=== PATIENT | female | born 1930 | race African-American/Black ===

== ENCOUNTER 2019-04-12 14:55 | Emergency (ER) | payer OTHER, MEDICAID ==
[~2019-04-12] VITALS: Ht 162.6 cm; Wt 54.0 kg
[2019-04-12 15:20] VITALS: BP 197/114
--- NOTE | 2019-04-12 15:31 | NUR ---
PT WHEELCHAIRED TO BED 9
--- NOTE | 2019-04-12 15:33 | NUR ---
88 Y/O FEMALE C/O ABD PAIN X 2 WEEKS. 8/10 CONSTANT SHARP PAIN MORE PROMINENT IN RUQ. BOWEL SOUNDS PRESENT X 4 QUAD. SOFT, ROUND, AND TENDER TO PALP. STATES CHANGE IN APPETITE. WHEN PAIN OCCURS PT STATES SHE FEELS SHORT OF BREATH. RR EVEN AND UNLABORED. PT LAYING IN BED CALM AND PLEASANT. VSS. MEDHX: ARTHRITIS ALLERGIES: NKA
[2019-04-12] MEDS: NACL 0.9% 1,000 ML IV ONE (16:51)
[2019-04-12] MEDS: MORPHINE SULFATE 4 MG/ML SYR IVP ONE (16:52)
--- NOTE | 2019-04-12 17:00 | NUR ---
PT PLACED ON BEDPAN FOR URINE COLLECTION
[2019-04-12 17:09] LABS: BASOPHILS # (AUTO) 0.1 K/uL (0.00-0.22); BASOPHILS % (AUTO) 0.9 % (0.0-2.0); EOSINOPHILS % (AUTO) 0.4 % (0.0-4.0); HEMATOCRIT 35.7 % (36-48); HEMOGLOBIN 11.5 g/dL (12.0-16.0); LYMPHOCYTES # (AUTO) 2.6 K/uL (2.5-16.5); LYMPHOCYTES % (AUTO) 37.3 % (20.5-51.1); MEAN CORPUSCULAR HEMOGLOBIN 30 pg (27-31); MEAN CORPUSCULAR HGB CONC 32 g/dL (33-37); MEAN CORPUSCULAR VOLUME 93.2 fL (80-94); MONOCYTES # (AUTO) 0.5 K/uL (0.8-1.0); MONOCYTES % (AUTO) 6.6 % (1.7-9.3); NEUTROPHILS # (AUTO) 3.8 K/uL (1.8-7.7); NEUTROPHILS % (AUTO) 54.8 % (42.2-75.2); PLATELET COUNT (AUTO) 201 K/uL (140-450); RED BLOOD CELL COUNT(AUTO) 3.83 MIL/uL (4.20-5.40); RED CELL DISTRIBUTION WIDTH 13.6 % (11.6-13.7); WHITE BLOOD COUNT (AUTO) 6.9 K/uL (4.8-10.8)
--- NOTE | 2019-04-12 17:18 | NUR ---
URINE COLLECTED FROM PT
--- NOTE | 2019-04-12 17:25 | NUR ---
XRAY AT BEDSIDE.
--- NOTE | 2019-04-12 17:29 | NUR ---
PT STATES SLIGHT DECREASE IN PAIN AFTER MEDICATION. 07/13. WILL REASSESS
[2019-04-12 17:40] LABS: ALBUMIN 3.8 g/dL (3.4-5.0); ANION GAP 18.9 (8-16); ASPARTATE AMINOTRANSFERASE 40 U/L (15-37); CARBON DIOXIDE 21.1 mmol/L (21-32); CHLORIDE 107 mmol/L (98-107); GLUCOSE 133 mg/dL (74-106); LIPASE 165 U/L (73-393); SODIUM SERUM 143 mmol/L (136-145); TOTAL BILIRUBIN 0.8 mg/dL (0.0-1.0); UREA NITROGEN, BLOOD 32 mg/dL (7-18)
[2019-04-12 18:44] VITALS: BP 138/65
--- NOTE | 2019-04-12 18:44 | NUR ---
Patient discharged with v/s stable. Written and verbal after care instructions given and explained. Patient/SON alert, oriented and verbalized understanding of instructions. Wheel Chair Assisted with SON to car. All questions addressed prior to discharge. ID band removed. Patient advised to follow up with PMD. Rx of LASIX given. Patient/SON educated on indication of medication including possible reaction and side effects. Opportunity to ask questions provided and answered.
[2019-04-12 18:55] LABS: APPEARANCE,URINE HAZY (CLEAR); BILIRUBIN,URINE NEGATIVE (NEGATIVE); BLOOD, URINE 1+ (NEGATIVE); COLOR,URINE YELLOW (YELLOW); LEUKOCYTE ESTERASE ,URINE 3+ (NEGATIVE); NITRITE, URINE NEGATIVE (NEGATIVE); UGLUCOSE NEGATIVE (NEGATIVE)
[2019-04-12 19:11] LABS: HYALINE CASTS, URINE 0-10 /LPF (None Seen)
== END 2019-04-12 18:44 | disposition home or self-care (01) ==
LOC: MED 14:55
DX: J90 Pleural effusion, not elsewhere classified (principal); I31.3 Pericardial effusion (noninflammatory); R10.9 Unspecified abdominal pain; I10 Essential (primary) hypertension
CPT/HCPCS: 36415; 71045; 74176; 80053; 81001; 83690; 83880; 85025; 87086; 87186; 96374; 99284; J2270; J7030; Q0092

== ENCOUNTER 2019-04-16 17:48 | Inpatient (IN) | payer OTHER, MEDICAID ==
[~2019-04-16] VITALS: Ht 160 cm; Wt 52.2 kg
--- NOTE | 2019-04-16 17:57 | NUR ---
PT IN WHEELCHAIR TO ER BED 05
[2019-04-16 18:05] VITALS: BP 166/104
--- NOTE | 2019-04-16 18:10 | NUR ---
PATIENT BIB DAUGHTER WITH C/O PERSISTANT SOB AND RIGHT RIB PAIN >1 WK, CONTINUES WITH INCREASED WORK OF BREATHING, ACCESSORY MUSCLE USE NOTED FATIGUE, GENERALIZED WEAKNESS, HX--HTN, HYPERLIPIDEMIA . PATIENT AAOX4 RHOCHI LUNGS BL; HR EVEN AND REGULAR; PT DENIES ANY FEVER, CP, DENIES PAIN, VSS; PATIENT POSITIONED FOR COMFORT; HOB ELEVATED; BEDRAILS UP X2; BED DOWN. ER MD MADE AWARE OF PT STATUS.
--- NOTE | 2019-04-16 18:15 | NUR ---
Patient being evaluated by physician at bedside.
--- NOTE | 2019-04-16 18:42 | NUR ---
IV INSERTED TO RIGHT FOREARM 20GA WITH GOOD BLOOD RETURN, PT TOLERATED WELL ON THE PROCEDURE .
--- NOTE | 2019-04-16 19:05 | NUR ---
REPORT GIVEN TO HOME PERFORMANCE CONSULTANT NURSE FOR CONTINUE OF CARE.
--- NOTE | 2019-04-16 19:05 | NUR ---
REPORT GIVEN FROM YAMILE CARRILLO. TRANSFER OF CARE GIVEN.
[2019-04-16 19:09] LABS: BASOPHILS % (AUTO) 0.7 % (0.0-2.0); EOSINOPHILS % (AUTO) 0.2 % (0.0-4.0); HEMATOCRIT 35.6 % (36-48); HEMOGLOBIN 11.5 g/dL (12.0-16.0); LYMPHOCYTES # (AUTO) 1.3 K/uL (2.5-16.5); LYMPHOCYTES % (AUTO) 20.5 % (20.5-51.1); MEAN CORPUSCULAR HEMOGLOBIN 30 pg (27-31); MEAN CORPUSCULAR HGB CONC 32 g/dL (33-37); MEAN CORPUSCULAR VOLUME 93.3 fL (80-94); MONOCYTES # (AUTO) 0.4 K/uL (0.8-1.0); MONOCYTES % (AUTO) 6.7 % (1.7-9.3); NEUTROPHILS # (AUTO) 4.7 K/uL (1.8-7.7); NEUTROPHILS % (AUTO) 71.9 % (42.2-75.2); PLATELET COUNT (AUTO) 138 K/uL (140-450); RED BLOOD CELL COUNT(AUTO) 3.82 MIL/uL (4.20-5.40); RED CELL DISTRIBUTION WIDTH 13.7 % (11.6-13.7); WHITE BLOOD COUNT (AUTO) 6.6 K/uL (4.8-10.8)
--- NOTE | 2019-04-16 19:20 | NUR ---
URINE COLLECTED VIA BED BLACK. PERINEAL HYGIENE PROVIDED WITH DAUGHTER'S ASSISTANCE.
[2019-04-16 19:30] LABS: ANION GAP 15.9 (8-16); CARBON DIOXIDE 23.2 mmol/L (21-32); CHLORIDE 111 mmol/L (98-107); CREATININE 3.6 mg/dL (0.6-1.3); GLUCOSE 101 mg/dL (74-106); POTASSIUM 4.1 mmol/L (3.5-5.1); SODIUM SERUM 146 mmol/L (136-145); UREA NITROGEN, BLOOD 54 mg/dL (7-18)
[2019-04-16 19:35] LABS: ALBUMIN 3.5 g/dL (3.4-5.0); ASPARTATE AMINOTRANSFERASE 76 U/L (15-37); TOTAL BILIRUBIN 1.1 mg/dL (0.0-1.0)
[2019-04-16 19:36] LABS: APPEARANCE,URINE CLEAR (CLEAR); BILIRUBIN,URINE NEGATIVE (NEGATIVE); BLOOD, URINE TRACE-I (NEGATIVE); COLOR,URINE YELLOW (YELLOW); LEUKOCYTE ESTERASE ,URINE TRACE (NEGATIVE); NITRITE, URINE NEGATIVE (NEGATIVE); PH,URINE 5.5 (5.0-9.0); UGLUCOSE NEGATIVE (NEGATIVE)
[2019-04-16 19:40] LABS: PROTHROMBIN TIME 12.4 secs (10.8-13.4)
--- NOTE | 2019-04-16 19:41 | NUR ---
PT TAKEN TO CT
--- NOTE | 2019-04-16 19:58 | NUR ---
PT RETURN FROM CT
[2019-04-16] MEDS ORDERED: ASPI-1718 PO (20:22)
[2019-04-16] MEDS ORDERED: CALC0.5S6 PO (20:24)
[2019-04-16] MEDS ORDERED: SIMV40TA1 PO (20:24)
[2019-04-16] MEDS ORDERED: FEBU40TA PO (20:26)
[2019-04-16] MEDS ORDERED: MULT-153 PO (20:26)
--- NOTE | 2019-04-16 20:47 | NUR ---
PT RESTING UPRIGHT IN BED EYES OPEN. RESPIRATIONS ARE EVEN AND UNLABORED. NC IN PALCE AND RUNNING CONTINOUSLY @ 2L/MIN. O2SAT @ 98%. DAUGHTER AT BEDSIDE. BED IN LOWEST POSITION AND LOCKED IN PLACE.
--- NOTE | 2019-04-16 20:59 | NUR ---
Dr. Mcelroy examining patient.
[2019-04-16] MEDS ORDERED: MORPHINE SULFATE 4 MG/ML SYR IVP ONE (21:05)
[2019-04-16] MEDS ORDERED: FUROSEMIDE 40 MG/4 ML VIAL IVP ONE (21:05)
[2019-04-16] MEDS ORDERED: DOCUSATE SODIUM 100 MG GELCAP PO PRN (21:55)
[2019-04-16] MEDS ORDERED: ACETAMINOPHEN 325 MG TAB PO PRN (21:55)
[2019-04-16] MEDS ORDERED: ONDANSETRON 4 MG/2 ML VIAL IM/IVP PRN (21:55)
[2019-04-16] MEDS ORDERED: HYDROcodone/APAP 7.5/325 MG 1 TAB PO PRN (21:55)
--- NOTE | 2019-04-16 21:59 | NUR ---
IV IN R FA INFULTRATED. ATTEMTED TO START NEW IV PLACEMENT WITH UNSUCCESSFUL RESULTS. MADE AWARE. Addendum: 04/16/19 at 2204 by [email or web address] * LASIX AND MORPHINE WERE NOT GIVEN. DR RAMIREZ MADE AWARE. NO NEW ORDERS AT THIS TIME. MULTPILE ATTEMOPS MADE FOR NEW IV PLACEMENT BY RN X 2 AND CHARGE NURSE. DAUGHTER IS REFUSING FURTHER IV ATTEMPTS.
--- NOTE | 2019-04-16 22:01 | NUR ---
Attempted to obtain new IV access. Unable to advance cath. Patients family expressed concern and does not any more attempts. Admitting Dr. Green informed.
--- NOTE | 2019-04-16 22:23 | NUR ---
Patient taken to floor in [facility] on monitor by RN's.
[2019-04-16] MEDS ORDERED: HEPARIN PER PHARMACY MC PRN (22:25)
[2019-04-16] MEDS ORDERED: hePARIN / DEXT 5% PREMIX 250 ML IV SCH (22:25)
--- NOTE | 2019-04-16 22:25 | NUR ---
RECEIVED PATIENT VIA GURNEY FROM THE ER NURSE MERY. PATIENT IS AWAKE AND ALERT, ABLE TO MAKE NEEDS KNOWN. ACCOMPANIED BY DAUGHTER ALICE AND SON ELSY. NC 2LPM. RESPIRATIONS EVEN, UNLABORED. SKIN WARM, DRY TO TOUCH. NO IV ACCESS AT THIS TIME. AWAITING PICC LINE INSERTION. RIGHT KNEE ABRASION NOTED FROM PREVIOUS FALL AT HOME. BLE WEAKNESS. ORIENTED TO ROOM, CALL LIGHT. MSRA SCREEN COMPLETED. VITALS TAKEN 173/96 HR 85. MD AWARE. PATIENT DENIES ANY PAIN. PLAN OF CARE DISCUSSED. ALL SAFETY MEASURES IN PLACE. BED IN LOWEST POSITION. CALL LIGHT WITHIN REACH. WILL CONTINUE TO MONITOR.
--- NOTE | 2019-04-16 22:26 | NUR ---
Called PICC RN [phone], ken Texted Joss CARRILLO [facility] [phone], wait for Joss to text back
--- NOTE | 2019-04-16 22:30 | NUR ---
Patient will be admitted to care of . Admited to [facility]. Will go to room 107B. Belongings list completed. Report to KRYSTINA CARRILLO.
--- NOTE | 2019-04-16 22:45 | NUR ---
PATIENT LEFT THE UNIT FOR CT ACCOMPANIED BY NURSE AND IN STABLE CONDITION.
[2019-04-16 22:52] LABS: CHOL/HDL RATIO 2.4 (1-4.5); FREE T4 (FREE THYROXINE) 1.34 ng/dL (0.76-1.46); MAGNESIUM 2.1 mg/dL (1.8-2.4); PHOSPHORUS 4.5 mg/dL (2.5-4.9); THYROID STIMULATING HORMONE 1.12 uIU/mL (0.34-3.74)
--- NOTE | 2019-04-16 23:00 | NUR ---
PATIENT RETURNED FROM CT IN STABLE CONDITION. NO S/SX ACUTE DISTRESS. NO C/O PAIN. PATIENT ASKED FOR SANDWICH. SANDWICH WAS PROVIDED BY STAFF. AWAITING ARRIVAL OF PICC LINE NURSE FOR INSERTION. CALL LIGHT WITHIN REACH. WILL CONTINUE TO MONITOR.
[2019-04-16] MEDS ORDERED: ALBUTEROL SULFATE/IPRATROPIU 3 ML SOL IH PRN (23:05)
[2019-04-16] MEDS ORDERED: NITROGLYCERIN 0.4 MG TAB SL ONE (23:05)
[2019-04-17] MEDS ORDERED: FUROSEMIDE 40 MG TAB PO SCH
[2019-04-17 00:06] VITALS: BP 173/96
[2019-04-17] MEDS ORDERED: cefTRIAXone 1,000 MG VIAL ONE (01:24)
--- NOTE | 2019-04-17 01:50 | NUR ---
PICC LINE NURSE CONFIRMED PLACEMENT AND STATED READY TO USE.
--- NOTE | 2019-04-17 02:21 | NUR ---
IV ABT INFUSING WELL. PATIENT AWAKE AND IN STABLE CONDITION. CALL LIGHT WITHIN REACH. WILL CONTINUE TO MONITOR.
[2019-04-17] MEDS: hePARIN / DEXT 5% PREMIX 250 ML IV SCH ×2 (02:34→11:09)
--- NOTE | 2019-04-17 02:35 | NUR ---
STARTED HEPARIN INFUSION. INFUSTION RATE 6.2 ML/HR. NO S/SX ACUTE DISTRESS. NO C/O PAIN. CALL LIGHT WITHIN REACH. WILL CONTINUE TO MONITOR.
[2019-04-17 04:00] VITALS: BP 163/96
--- NOTE | 2019-04-17 04:05 | NUR ---
PATIENT'S BP 163/96. MD IS AWARE. AWAITING ORDERS. NO S/SX ACUTE DISTRESS. WILL CONTINUE TO MONITOR.
--- NOTE | 2019-04-17 04:10 | NUR ---
DAUGHTER PAT CALLED FOR AN UPDATE ON PATIENT. RELAYED TO DAUGHTER THAT PATIENT IS SLEEPING AND IN STABLE CONDITION. NO S/SX ACUTE DISTRESS. CALL LIGHT WITHIN REACH. WILL CONTINUE TO MONITOR.
--- NOTE | 2019-04-17 04:25 | NUR ---
PER ELECTRO TECH PATIENT'S HR IS RANGING FROM 150-170. NOTIFIED MD WITH RECOMMENDATION TO TAKE MORNING BP MEDS EARLY. NO S/SX DISTRESS NOTED. NO C/O PAIN. WILL CONTINUE TO MONITOR.
[2019-04-17] MEDS ORDERED: LISINOPRIL 5 MG TAB ONE (04:40)
[2019-04-17] MEDS ORDERED: METOPROLOL 25 MG TAB ONE (04:52)
--- NOTE | 2019-04-17 04:54 | NUR ---
MEDICATED WITH METOPROLOL PER MD ORDER. WILL CONTINUE TO MONITOR.
--- NOTE | 2019-04-17 05:25 | NUR ---
PATIENT'S HR STILL ELEVATED RANGING FROM 150-170s. MD ORDERED EKG. CALL LIGHT WITHIN REACH. WILL CONTINUE TO MONITOR.
[2019-04-17 06:24] LABS: BASOPHILS # (AUTO) 0.1 K/uL (0.00-0.22); BASOPHILS % (AUTO) 1.5 % (0.0-2.0); EOSINOPHILS # (AUTO) 0.1 K/uL (0-0.4); EOSINOPHILS % (AUTO) 1.2 % (0.0-4.0); HEMATOCRIT 33.3 % (36-48); HEMOGLOBIN 10.8 g/dL (12.0-16.0); LYMPHOCYTES # (AUTO) 1.4 K/uL (2.5-16.5); LYMPHOCYTES % (AUTO) 22.1 % (20.5-51.1); MEAN CORPUSCULAR HEMOGLOBIN 30 pg (27-31); MEAN CORPUSCULAR HGB CONC 32 g/dL (33-37); MEAN CORPUSCULAR VOLUME 93.4 fL (80-94); MONOCYTES # (AUTO) 0.5 K/uL (0.8-1.0); MONOCYTES % (AUTO) 7.9 % (1.7-9.3); NEUTROPHILS # (AUTO) 4.3 K/uL (1.8-7.7); NEUTROPHILS % (AUTO) 67.3 % (42.2-75.2); PLATELET COUNT (AUTO) 136 K/uL (140-450); RED BLOOD CELL COUNT(AUTO) 3.57 MIL/uL (4.20-5.40); RED CELL DISTRIBUTION WIDTH 13.9 % (11.6-13.7); WHITE BLOOD COUNT (AUTO) 6.4 K/uL (4.8-10.8)
[2019-04-17 06:54] LABS: CARBON DIOXIDE 22.3 mmol/L (21-32); CHLORIDE 110 mmol/L (98-107); CREATININE 3.7 mg/dL (0.6-1.3); GLUCOSE 118 mg/dL (74-106); POTASSIUM 4.3 mmol/L (3.5-5.1); SODIUM SERUM 145 mmol/L (136-145); UREA NITROGEN, BLOOD 60 mg/dL (7-18)
--- NOTE | 2019-04-17 07:22 | NUR ---
ENDORSED PATIENT IN STABLE CONDITION TO AM SHIFT NURSE.
[2019-04-17 08:00] VITALS: BP 108/83
--- NOTE | 2019-04-17 08:00 | NUR ---
RECEIVED PATIENT FROM FOOD OR BAGGAGE HANDLING RAMPMAN RN FOR CONTINUITY OF CARE. PATIENT IS AAOX3, ABLE TO MAKE NEEDS KNOWN. NC @ 2LPM. RESPIRATIONS EVEN, UNLABORED. SKIN WARM, DRY TO TOUCH. PILL LINE IN THE RIGHT UPPER ARM, 2 LUMENS FLUSHING WELL. RIGHT KNEE ABRASION NOTED FROM PREVIOUS FALL AT HOME. BLE WEAKNESS. ORIENTED TO ROOM, CALL LIGHT. MD AWARE. PATIENT DENIES ANY PAIN. POC DISCUSSED WITH PT AND PT VERBALIZED UNDERSTANDING. ALL SAFETY MEASURES IN PLACE. BED IN LOWEST POSITION. CALL LIGHT WITHIN REACH. WILL MONITOR PT FREQUENTLY.
--- NOTE | 2019-04-17 08:16 | NUR ---
PATIENT HAS BEEN SCREENED AND CATEGORIZED MODERATE NUTRITION RISK. PATIENT WILL BE SEEN WITHIN 3-5 DAYS OF ADMISSION. 04/19/19 04/21/[address]
[2019-04-17] MEDS ORDERED: LISINOPRIL 5 MG TAB PO SCH (09:00)
[2019-04-17] MEDS ORDERED: METOPROLOL SUCCINATE 50 MG TABER PO SCH (09:00)
[2019-04-17] MEDS ORDERED: PANTOPRAZOLE 40 MG TABEC PO SCH (09:00)
[2019-04-17] MEDS ORDERED: METOPROLOL 25 MG TAB PO SCH (09:00)
[2019-04-17] MEDS: ASPIRIN 81 MG TAB.CHEW PO SCH (09:24)
--- NOTE | 2019-04-17 09:24 | NUR ---
PT MORNING MEDICATIONS GIVEN. PT TOLERATED WELL. ALL OTHER NEEDS MET. WILL CONTINUE TO ROUND FREQUENTLY ON PT. BED IN LOW POSITION, CALL LIGHT WITHIN REACH. PT HAS ORDER FOR RESTRAINTS BUT PT DOES NOT NEED THEM AT THIS TIME.
[2019-04-17] MEDS: FUROSEMIDE 40 MG/4 ML VIAL IVP SCH ×2 (09:25→21:52)
--- NOTE | 2019-04-17 09:51 | NUR ---
WOUND CARE EVALUATION NOTE: WOUND ASSESSMENT CARD TO THIS 88 Y/O FEMALE PT. ALERT,K FORGETFUL , FOLLOW DIRECTIONS WELL. 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 ABLE TO BEND RIGHT KNEE WITH NO LIMITATION, NO C/O PAIN. RECOMMENDATIONS: -CLEANSE RIGHT KNEE SKIN TEAR WITH NS, PAT DRY, APPLY SILVASORB GEL AND COVER WITH COMPOSITE DRESSING QD AND PRN IF SOILING -ENCOURAGE TO TURN AND REPOSITION PATIENT Q 2H -ASSESS AND MONITOR SKIN CONDITION DURING POSITION CHANGE -OFFLOAD BILATERAL HEELS BY PLACING PILLOWS UNDER CALVES AT ALL TIMES, UNLESS OTHERWISE CONTRAINDICATED -KEEP SKIN CLEAN AND DRY AT ALL TIMES.
--- NOTE | 2019-04-17 11:32 | NUR ---
PT RESTING IN BED. ALL NEEDS MET. WILL CONTINUE TO ROUND ON PT.
[2019-04-17 12:00] VITALS: BP 127/85
--- NOTE | 2019-04-17 13:54 | NUR ---
PT SLEEPING. ALL NEEDS MET. WILL CONTINUE TO ROUND FREQUENTLY ON PT. BED IN LOW POSITION, CALL LIGHT WITHIN REACH.
[2019-04-17] MEDS: PIPERACILLIN/TAZOBACTAM 2.25 GM in DEXTROSE 5% 50 ML IV SCH ×2 (13:59→21:49)
[2019-04-17] MEDS: GAUZE TP SCH (13:59)
--- NOTE | 2019-04-17 15:21 | NUR ---
Military Administrative Technician Note: Patient is an 88-year-old female admitted for SOB and elevated trops. Patient has PMHX of HTN, and osteoarthritis. Patient was admitted from home. SW attempted to conduct assessment with bedside but patient could not recall what facility she came from. Patient directed SW to son Aashish Aggarwal [phone]. Patient left . SW will follow up.
--- NOTE | 2019-04-17 15:21 | NUR ---
PT RESTING IN BED WATCHING TV. ALL NEEDS MET. WILL CONTINUE TO ROUND ON PT.
--- NOTE | 2019-04-17 15:31 | NUR ---
DISCHARGE PLANNING: AN 88 Y/O FEMALE PATIENT FROM A INTERMEDIATE FACILITY IN [place], WHO CAME IN DUE TO SHOERTNESS OF BREATH AND CHEST PAIN X 2DAYS. PAST MEDICAL HISTORY INCLUDE HTN, OSTEOARTHRITIS, CKD. INITIAL DIAGNOSIS OF SOB AND ELEVATED TROPONIN. CURRENT LABS INCLUDE WBC 6.4, H/H 10.8/33.3, NA/K 145/4.3, BUN/CREA 60/3.7, TROP 0.722, BNP 5000 AND PTT 73.3. ON HEPARIN DRIP. ON ZOSYN AND LASIX IV. 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 MILD GLOBAL VOLUME LOSS AND CHRONIC MICROVASCULAR ISCHEMIC CHANGE. CHEST CT SHOWED SMALL BILATERAL PLEURAL EFFUSIONS WITH ASSOCIATED AREAS OF ATELECTASIS, CARDIOMEGALY WITH CORONARY ARTERY CALCIFICATIONS. ABD U/S SHOWED PROBABLE ELEVATED RIGHT HEART PRESSURE, PROBABLE PORTAL HYPERTENSION, SMALL AMOUNT OF ASCITES. KIDNEY U/S SHOWED MEDICAL RENAL DISEASE. NEPHRO, PULMO AND CARDIO CONSULTS IN PLACE. DC PLAN TO HOME ONCE STABLE. Addendum: 04/18/19 at 1400 by Grisel Lemus DC PLANNING: TENTATIVE DC PLAN TO SNF FOR IV ANTIBIOTICS AND PT. MET WITH THE PATIENT AND THE PATIENT'S DAUGHTER PAT AT THE BEDSIDE TO DISCUSS DC PLANNING. PATIENT'S DAUGHTER PAT STATED THEY DO NOT HAVE ANY PREFERENCE HOWEVER SHE WANTED TO TOUR THE PLACE FIRST. IMM AND CHOICE OF VENDOR FORM PROVIDED. PATIENT'S DAUGHTER PAT SIGNED BOTH PAPERS AND COPIES ARE PLACED IN THE CHART. Addendum: 04/19/19 at 1418 by Nati MATHUR Late entry for 04/18/18: I was informed by Loader Machine Grisel, patient's family is going to tour [facility] on 04/19/18. Addendum: 04/19/19 at 1422 by Nati MATHUR I was informed by Charge Nurse Rosie, patient's family would like patient to be transferred to [facility] . I faxed inquiry to [facility]. Mike Matos from [facility] patient may go to room 420A today, patient's nurse Radha made aware. Addendum: 04/19/19 at 1512 by Randi Casanova CM DC PLANNING PT IS ACCEPTED AT [facility] GOING TO ROOM 420A ARRANGED TRANSPORT WITH [employer] CAR REPAIRER PULLMAN TIME 7 PM NOTIFIED RADHA CARRILLO. PER NATI RUVALCABA(HVAC PROJECT MANAGER) YARI TO [facility].
[2019-04-17 16:00] VITALS: BP 131/82
--- NOTE | 2019-04-17 17:32 | NUR ---
PT RESTING WITH DAUGHTER AT BEDSIDE. ALL NEEDS MET. WILL CONTINUE TO ROUND FREQUENTLY ON PT. BED IN LOW POSITION, CALL LIGHT WITHIN REACH.
[2019-04-17] MEDS: ATORVASTATIN 20 MG TAB PO SCH (18:15)
--- NOTE | 2019-04-17 19:30 | NUR ---
RECEIVED BEDSIDE REPORT FROM AM SHIFT RN FOR PT'S CONTINUITY OF CARE. PT IS AAOX2, WITH FAMILY MEMBER AT BEDSIDE, PT IS ON SENIOR SPEECH PATHOLOGIST, ON 2L O2 VIA NC, HAS RIGHT UPPER ARM PICC LINE, SALINE LOCK, DENIES ANY PAIN AT THIS TIME. EXPLAINED TO PT THE EAR SPECIALIST ROUTINE, PT AND FAM MEMBER VERBALIZED UNDERSTANDING. SAFETY MEASURES IN PLACE, AND CALL LIGHT IS WITHIN REACH. WILL MONITOR PT THROUGHOUT SHIFT.
--- NOTE | 2019-04-17 19:38 | NUR ---
ENDORSED PT TO STRAP MACHINE OPERATOR AUTOMATIC FOR CONTINUITY OF CARE. PT IN STABLE CONDITION AT THIS TIME.
[2019-04-17 20:00] VITALS: BP 131/80
[2019-04-17] MEDS ORDERED: SIMVASTATIN 40 MG TAB PO SCH (21:00)
--- NOTE | 2019-04-17 21:45 | NUR ---
ADMINISTERED SCHEDULED IV ABX, PO, AND IVP MEDICATIONS ORDERED. PT TOLERATED THEM WELL. PT IS MADE COMFORTABLE, WENT BACK TO SLEEP RIGHT AWAY. WILL CONTINUE TO MONITOR PT.
[2019-04-17] MEDS: CARVEDILOL 6.25 MG TAB PO SCH (21:53)
--- NOTE | 2019-04-17 23:30 | NUR ---
VS CHECKED AND CHARTED. PT VOIDED, CHANGED LINENS AND MADE PT COMFORTABLE. PT DENIES ANY PAIN OR DISCOMFORT. PT WENT BACK TO SLEEP RIGHT AWAY. WILL CONTINUE TO MONITOR PT.
[2019-04-18] VITALS (7 sets, daily range): BP systolic 98–113; BP diastolic 44–68
--- NOTE | 2019-04-18 02:30 | NUR ---
MADE ROUNDS. PT LYING DOWN ASLEEP WITH NO SIGNS OF DISTRESS. WILL CONTINUE TO MONITOR PT.
--- NOTE | 2019-04-18 03:30 | NUR ---
PT AWAKE, REQUESTED AND PROVIDED WITH SNACKS. PT VOIDED, CHANGED AND MADE COMFORTABLE. VS CHECKED AND CHARTED. PT TOLERATING SNACKS AND DENIES ANY DISCOMFORT OR PAIN. WILL CONTINUE TO MONITOR PT.
--- NOTE | 2019-04-18 04:10 | NUR ---
PT ASLEEP, WITH NO SIGNS OF DISTRESS OR DISCOMFORT. ADMINISTERED SCHEDULED IV ABX ORDERED. WILL CONTINUE TO MONITOR PT.
[2019-04-18] MEDS: PIPERACILLIN/TAZOBACTAM 2.25 GM in DEXTROSE 5% 50 ML IV SCH ×3 (05:09→20:57)
[2019-04-18 06:07] LABS: T4 (THYROXINE) 8.2 ug/dL (4.5-12.0)
[2019-04-18] MEDS: PANTOPRAZOLE 40 MG TABEC PO SCH (06:42)
--- NOTE | 2019-04-18 07:10 | NUR ---
RECEIVED BEDSIDE REPORT FROM ADMISSIONS RN NURSE. PATIENT IS SLEEPING. NO SIGNS OF DISTRESS ON 2L NC. PATIENT IS BEDBOUND. BLE +2 EDEMA, R KNEE ABRASION. INCONTINENT. KASH DOUBLE LUMEN PICC LINE SL. CLEAN, DRY AND INTACT. BED IN LOW POSITION. CALL LIGHT WITHIN REACH. WILL CONTINUE TO MONITOR THE PATIENT.
[2019-04-18 07:19] LABS: ANION GAP 13.5 (8-16); CARBON DIOXIDE 27.8 mmol/L (21-32); CHLORIDE 110 mmol/L (98-107); GLUCOSE 118 mg/dL (74-106); POTASSIUM 4.3 mmol/L (3.5-5.1); SODIUM SERUM 147 mmol/L (136-145)
[2019-04-18 07:21] LABS: PHOSPHORUS 5.7 mg/dL (2.5-4.9)
[2019-04-18 07:22] LABS: BASOPHILS % (AUTO) 0.2 % (0.0-2.0); EOSINOPHILS # (AUTO) 0.3 K/uL (0-0.4); EOSINOPHILS % (AUTO) 5.4 % (0.0-4.0); HEMATOCRIT 29.8 % (36-48); HEMOGLOBIN 9.6 g/dL (12.0-16.0); LYMPHOCYTES # (AUTO) 1.1 K/uL (2.5-16.5); LYMPHOCYTES % (AUTO) 17.6 % (20.5-51.1); MEAN CORPUSCULAR HEMOGLOBIN 31 pg (27-31); MEAN CORPUSCULAR HGB CONC 32 g/dL (33-37); MEAN CORPUSCULAR VOLUME 94.9 fL (80-94); MONOCYTES # (AUTO) 0.5 K/uL (0.8-1.0); MONOCYTES % (AUTO) 8.5 % (1.7-9.3); NEUTROPHILS # (AUTO) 4.2 K/uL (1.8-7.7); NEUTROPHILS % (AUTO) 68.3 % (42.2-75.2); PLATELET COUNT (AUTO) 114 K/uL (140-450); RED BLOOD CELL COUNT(AUTO) 3.14 MIL/uL (4.20-5.40); RED CELL DISTRIBUTION WIDTH 14.1 % (11.6-13.7); UREA NITROGEN, BLOOD 71 mg/dL (7-18); WHITE BLOOD COUNT (AUTO) 6.2 K/uL (4.8-10.8)
[2019-04-18 07:23] LABS: CREATININE 4.4 mg/dL (0.6-1.3)
[2019-04-18] MEDS: CARVEDILOL 6.25 MG TAB PO SCH ×2 (09:00→20:51)
[2019-04-18] MEDS ORDERED: amLODIPine 5 MG TAB PO SCH (09:00)
[2019-04-18] MEDS: ASPIRIN 81 MG TAB.CHEW PO SCH (09:04)
--- NOTE | 2019-04-18 09:10 | NUR ---
ADMINISTERED MEDS. DR WAKEFIELD AWARE IM HOLDING COREG D/T LOW HR. HE SAID OK TO GIVE LASIX BUT DONT GIVE IT AT THE SAME TIME NORVASC, HE SAID GIVE LASIX RECHECK B/P AND GIVE NORVASC IF B/P IS OK. WILL RECHECK IN ABOUT AN HR
--- NOTE | 2019-04-18 10:20 | NUR ---
B/P AND HR LOW 100/50 HR 59, [facility]
--- NOTE | 2019-04-18 10:55 | NUR ---
GAVE BEDSIDE REPORT TO RADHA RN, PATIENT ENDORSED IN STABLE CONDITION
--- NOTE | 2019-04-18 10:59 | NUR ---
REPORT RECEIVED FROM GERARDO SOLIS, PT SITTING UP RESTING QUIETLY IN NO ACUTE DISTRESS, DENIES ANY PAIN OR DISCOMFORT,CALL SU WITHIN REACH, SAFETY MEASURES IN PLACE, WILL CONTINUE TO MONITOR.
--- NOTE | 2019-04-18 11:15 | NUR ---
BED BATH GIVEN, LINEN CHANGED BY CARL DORMAN.
[2019-04-18] MEDS: GAUZE TP SCH (12:48)
--- NOTE | 2019-04-18 12:58 | NUR ---
PT'S DAUGHTER AND SON AT BEDSIDE, ASSISTING WITH LUNCH.
--- NOTE | 2019-04-18 13:40 | NUR ---
SPEECH THERAPIST AT BEDSIDE FOR SWALLOW EVAL.
[2019-04-18] MEDS: ATORVASTATIN 20 MG TAB PO SCH (18:50)
--- NOTE | 2019-04-18 19:30 | NUR ---
RECEIVED BEDSIDE REPORT FROM DAY RN. PATIENT IS AAOX2-3. RESPIRATIONS ARE EQUAL AND UNLABORED ON ROOM AIR. PATIENT IS BEDBOUND. BLE +2 EDEMA, R KNEE ABRASION. INCONTINENT. KASH DOUBLE LUMEN PICC LINE SL. CLEAN, DRY AND INTACT. BED IN LOW POSITION. CALL LIGHT WITHIN REACH. WILL CONTINUE TO MONITOR THE PATIENT.
--- NOTE | 2019-04-18 20:57 | NUR ---
VSS. B/P 100/44 HR 64 HELD MANISH COREG D/T B/P. ALL OTHER MANISH MEDS GIVEN. PT TOLERATED WELL. EDUCATED PT ON S/E OF MEDS. WILL CONTINUE TO MONITOR
[2019-04-18] MEDS ORDERED: FUROSEMIDE 40 MG TAB PO SCH (21:00)
--- NOTE | 2019-04-18 22:07 | NUR ---
PT IS SLEEPING COMFORTABLY IN BED. CHEST RISE AND FALL. WILL CONTINUE TO MONITOR.
[2019-04-19] VITALS: BP 114/52
--- NOTE | 2019-04-19 | NUR ---
VITAL SIGNS ARE WITHIN NORMAL LIMITS. NO S/S OF DISTRESS. ALL NEEDS MET AT THIS TIME.
--- NOTE | 2019-04-19 01:50 | NUR ---
GAVE BEDSIDE REPORT TO CARISSA. PT ENDORSED IN STABLE CONDITION.
--- NOTE | 2019-04-19 02:00 | NUR ---
RECEIVED PT FROM MARY RN PA RESTING ON BED AAOX3 NOT DISTRESS NOTED AT THIS TIME IV INFUSING WELL ON RT UPLPER ARM PICC LINE INITIL ASSESSMENT DONE
[2019-04-19 04:00] VITALS: BP 115/61
[2019-04-19] MEDS: PIPERACILLIN/TAZOBACTAM 2.25 GM in DEXTROSE 5% 50 ML IV SCH ×3 (04:43→20:06)
--- NOTE | 2019-04-19 04:45 | NUR ---
;SPONGE BATH GIVEN LINEN CHANGED REPOSITIONED, ON TELMETRY SR NOT DISTRESS NOTED
[2019-04-19 07:10] LABS: BASOPHILS % (AUTO) 0.2 % (0.0-2.0); EOSINOPHILS # (AUTO) 0.4 K/uL (0-0.4); EOSINOPHILS % (AUTO) 6.7 % (0.0-4.0); HEMATOCRIT 30.8 % (36-48); HEMOGLOBIN 9.9 g/dL (12.0-16.0); LYMPHOCYTES # (AUTO) 1.4 K/uL (2.5-16.5); LYMPHOCYTES % (AUTO) 22.3 % (20.5-51.1); MEAN CORPUSCULAR HEMOGLOBIN 30 pg (27-31); MEAN CORPUSCULAR HGB CONC 32 g/dL (33-37); MONOCYTES # (AUTO) 0.4 K/uL (0.8-1.0); MONOCYTES % (AUTO) 6.9 % (1.7-9.3); NEUTROPHILS % (AUTO) 63.9 % (42.2-75.2); PLATELET COUNT (AUTO) 124 K/uL (140-450); RED BLOOD CELL COUNT(AUTO) 3.31 MIL/uL (4.20-5.40); RED CELL DISTRIBUTION WIDTH 14.2 % (11.6-13.7); WHITE BLOOD COUNT (AUTO) 6.3 K/uL (4.8-10.8)
[2019-04-19 07:17] LABS: MAGNESIUM 1.9 mg/dL (1.8-2.4); PHOSPHORUS 5.4 mg/dL (2.5-4.9)
[2019-04-19 07:25] LABS: ANION GAP 15.5 (8-16); CARBON DIOXIDE 27.4 mmol/L (21-32); CHLORIDE 107 mmol/L (98-107); GLUCOSE 89 mg/dL (74-106); POTASSIUM 3.9 mmol/L (3.5-5.1); SODIUM SERUM 146 mmol/L (136-145)
--- NOTE | 2019-04-19 07:30 | NUR ---
PT IS ENDORSED TO DAY SHIFT NURSE FOR CONTINUE OF CARE
[2019-04-19] MEDS: PANTOPRAZOLE 40 MG TABEC PO SCH (07:31)
--- NOTE | 2019-04-19 07:31 | NUR ---
BEDSIDE REPORT RECEIVED FROM FARM EQUIPMENT SERVICE TECHNICIAN NURSE, PT RESTING QUIETLY, AOX3, RESP EVEN UNLABORED ON RA, FOLLOWS SIMPLE COMMANDS, DENIES PAIN, IPICC LINE TO R UA TKO, SITE WNL, ON CONTINUOUS TELE MONITOR, SKIN WARM DRY COLOR WNL, ALL SAFETY MEASURE SIN PLACE, POC REVIEWED, WILL CONTINUE TO MONITOR.
[2019-04-19 08:00] VITALS: BP 123/64
[2019-04-19 08:45] LABS: CREATININE 4.6 mg/dL (0.6-1.3); UREA NITROGEN, BLOOD 78 mg/dL (7-18)
[2019-04-19] MEDS ORDERED: ZOS2.25I IV (08:56)
[2019-04-19] MEDS ORDERED: FUROSEMIDE 40 MG TAB PO SCH (09:00)
--- NOTE | 2019-04-19 09:20 | NUR ---
DAUGHTER PAT AT BEDSIDE, WANTS TO SPEAK WITH DOCTOR, DR VACA NOTIFIED BY DR SOLANO.
--- NOTE | 2019-04-19 09:35 | NUR ---
SOFT BROWN BM X1, PERICARE DONE, PADS CHANGED, POSITION CHANGED, PT JANET WELL.
[2019-04-19] MEDS: CARVEDILOL 6.25 MG TAB PO SCH ×2 (09:57→20:07)
[2019-04-19] MEDS: ASPIRIN 81 MG TAB.CHEW PO SCH (09:57)
--- NOTE | 2019-04-19 11:10 | NUR ---
BM X1 AGAIN, SOFT, BROWN, PERICARE DONE, PT ABLE TO TURN SIDE TO SIDE TO ASSIST WITH CHANGING PADS, DENIES ANY PAIN OR DISCOMFORT, WILL CONTINUE TO MONTIOR.
[2019-04-19 12:00] VITALS: BP 105/58
[2019-04-19] MEDS: GAUZE TP SCH (13:33)
--- NOTE | 2019-04-19 15:20 | NUR ---
PER BUCK PATEL, AND SANCHO MARRERO, PT IS TO GO TO [facility] 420[facility], , CROP GRAIN OR LIVESTOCK FARM MANAGER BY [employer] AT 1900, PT INFORMED OF THE PLAN, PT'S DAUGHTER PAT CALLED TO INFORM OF THE PLAN.
--- NOTE | 2019-04-19 15:58 | NUR ---
PT'S SON ELSY CALLED FOR UPDATE, INFORMED THAT PT IS DUE TO TRANSFER AT 1900 BY [facility] TO [facility].
[2019-04-19 16:00] VITALS: BP 120/64
--- NOTE | 2019-04-19 16:15 | NUR ---
[phone] NURSE JEAN PIERRE.
[2019-04-19] MEDS: ATORVASTATIN 20 MG TAB PO SCH (17:02)
--- NOTE | 2019-04-19 18:00 | NUR ---
DAUGHTER AT BEDSIDE, ASSISTING PT WITH DINNER. PT REPEATEDLY ASKS WHEN SHE IS GOING, PT RE-INFORMED THAT TRANSPORTATION IS PICKING HER UP AT 1900.
--- NOTE | 2019-04-19 19:12 | NUR ---
REPORT GIVEN TO PULP DRIER FIRER NURSE, PT IN STABLE CONDITION
--- NOTE | 2019-04-19 19:13 | NUR ---
BEDSIDE REPORT RECEIVED FROM DAY RN. PT RESTING QUIETLY, AOX3, RESP EVEN UNLABORED ON RA, FOLLOWS SIMPLE COMMANDS, DENIES PAIN, PICC LINE TO KASH SL, SITE WNL, ON CONTINUOUS TELE MONITOR, SKIN WARM DRY COLOR WNL, ALL SAFETY MEASURE SIN PLACE, POC REVIEWED, DAUGHTER IS AT BEDSIDE. PT WAITING TO BE TRANSFERRED TO [facility]. WILL CONTINUE TO MONITOR.
[2019-04-19 20:00] VITALS: BP 122/59
--- NOTE | 2019-04-19 20:07 | NUR ---
VSS. B/P 122/59 ADMINISTERED COREG PER ORDERS. HELD MANISH ZOSYN WILL BE GIVEN AT [facility]. DAUGHTER PAT LEFT. ALL SAFETY MEASURES ARE IN PLACE. CALL LIGHT IS WITHIN REACH.
--- NOTE | 2019-04-19 20:24 | NUR ---
[employer] ASSISTANT AUDITOR PT. VSS. NO S/S OF DISTRESS. ARM BAND REMOVED. REPORT GIVEN TO M&Alize ALONG WITH ALL HER PAPERS AND BELONGINGS. REPORT WAS GIVEN FROM DAY RN TO FACILITY. PT LEFT WITH KASH PICC LINE TO CONTINUE IV ANTIBIOTICS. CALLED DAUGHTER ALICE TO INFORM PT WAS PICKED UP.
== END 2019-04-19 20:25 | DRG 280 ==
LOC: MED 17:48 → MTU 21:58
PROVIDERS: ADMIT General Practice; ATTEND General Practice
PROC: 02HV33Z Insertion of Infusion Device into Superior Vena Cava, Percutaneous Approach (ICD-10-PCS; principal; 2019-04-17)
PROC: B548ZZA Ultrasonography of Superior Vena Cava, Guidance (ICD-10-PCS; 2019-04-17)
DX: I13.0 Hypertensive heart and chronic kidney disease with heart failure and stage 1 through stage 4 chronic kidney disease, or unspecified chronic kidney disease (principal); I21.A1 Myocardial infarction type 2; N17.0 Acute kidney failure with tubular necrosis; J69.0 Pneumonitis due to inhalation of food and vomit; I50.43 Acute on chronic combined systolic (congestive) and diastolic (congestive) heart failure; J98.11 Atelectasis; E87.0 Hyperosmolality and hypernatremia; N18.4 Chronic kidney disease, stage 4 (severe); N12 Tubulo-interstitial nephritis, not specified as acute or chronic; E83.39 Other disorders of phosphorus metabolism; R74.0 Nonspecific elevation of levels of transaminase and lactic acid dehydrogenase [LDH]; E78.5 Hyperlipidemia, unspecified; E07.89 Other specified disorders of thyroid; I48.0 Paroxysmal atrial fibrillation; D63.8 Anemia in other chronic diseases classified elsewhere; M19.90 Unspecified osteoarthritis, unspecified site; R91.8 Other nonspecific abnormal finding of lung field; N26.1 Atrophy of kidney (terminal); I16.0 Hypertensive urgency; Z79.899 Other long term (current) drug therapy
CPT/HCPCS: 36415; 36600; 70450; 71045; 71250; 76705; 76770; 80048; 80053; 81003; 82150; 82803; 83036; 83605; 83690; 83735; 83880; 84100; 84436; 84439; 84443; 84479; 84484; 85025; 85610; 85730; 87040; 87081; 87086; 93005; 94640; 99285; C1751; J0696; J1644; J1940; J2270; J2543; J7060; J7620; Q0092